=== PATIENT | female | born 1965 | race Caucasian/White ===

== ENCOUNTER 2017-08-26 09:49 | Emergency (ER) | payer MEDICARE, OTHER ==
[~2017-08-26] VITALS: Ht 162.6 cm; Wt 61.2 kg
--- NOTE | 2017-08-26 09:55 | NUR ---
PT IS IN ROOM #1B, WAITING FOR COLMENARES EVALUATION.
[2017-08-26] MEDS ORDERED: MORPHINE SULFATE 2 MG/1 ML DISP.SYRIN IV ONE (10:45)
[2017-08-26] MEDS ORDERED: KETOROLAC TROMETHAMINE 30 MG INJ IVP ONE (10:45)
[2017-08-26] MEDS ORDERED: diphenhydrAMINE 50 MG/1 ML VIAL IV ONE (10:45)
[2017-08-26] MEDS ORDERED: IV NS 1000 ML 1,000 ML IV ONE (10:45)
[2017-08-26] MEDS ORDERED: DEXAMETHASONE SOD PHOSPHATE 4 MG INJ IV ONE (10:45)
[2017-08-26] MEDS ORDERED: diphenhydrAMINE 50 MG/1 ML VIAL ONE (11:00)
[2017-08-26] MEDS ORDERED: ONDANSETRON IV *ER 4 MG/2 ML VIAL IV ONE ×2 (11:00→14:30)
[2017-08-26] MEDS ORDERED: MORPHINE SULFATE 2 MG/1 ML DISP.SYRIN ONE (11:00)
[2017-08-26] MEDS ORDERED: DEXAMETHASONE SOD PHOSPHATE 10 MG INJ ONE (11:00)
[2017-08-26] MEDS ORDERED: KETOROLAC TROMETHAMINE 30 MG INJ ONE (11:01)
[2017-08-26] MEDS ORDERED: ONDANSETRON 4 MG/2 ML VIAL ONE ×2 (11:01→14:29)
[2017-08-26 11:25] LABS: BILIRUBIN,TOTAL 0.2 mg/dL (0.1-1.0); CREATININE 0.9 mg/dL (0.6-1.3); POTASSIUM 3.9 mmol/L (3.5-5.1)
[2017-08-26 11:26] LABS: TOTAL PROTEIN, SERUM 7.8 g/dL (6.4-8.2)
[2017-08-26 11:28] LABS: BASOPHILS % (AUTO) 0.6 % (0.0-2.0); EOSINOPHILS # (AUTO) 0.1 K/uL (0.0-0.7); EOSINOPHILS % (AUTO) 1.7 % (0.0-7.0); HEMATOCRIT 42.1 % (31.2-41.9); HEMOGLOBIN 14.2 g/dL (10.9-14.3); LYMPHOCYTES # (AUTO) 1.1 K/uL (20.0-40.0); LYMPHOCYTES % (AUTO) 25.2 % (20.5-51.5); MEAN CORPUSCULAR HEMOGLOBIN 29.3 uug (24.7-32.8); MEAN CORPUSCULAR HGB CONC 34 g/dL (32.3-35.6); MEAN CORPUSCULAR VOLUME 86.5 fL (75.5-95.3); MONOCYTES # (AUTO) 0.4 K/uL (2.0-10.0); MONOCYTES % (AUTO) 8.3 % (0.0-11.0); NEUTROPHILS # (AUTO) 2.9 K/uL (1.8-8.9); NEUTROPHILS % (AUTO) 64.2 % (38.5-71.5); PLATELET COUNT (AUTO) 180 K/uL (179-408); RED BLOOD CELL COUNT(AUTO) 4.86 MIL/uL (3.63-4.92); WHITE BLOOD COUNT (AUTO) 4.5 K/uL (3.8-11.8)
[2017-08-26] MEDS ORDERED: HYDROMORPHONE 1 MG/1 ML DISP.SYRIN IV ONE ×2 (11:48→14:19)
[2017-08-26 11:53] LABS: *BILIRUBIN,URIN NEGATIVE (NEGATIVE); *BLOOD, URINE NEGATIVE (NEGATIVE); *CLARITY,URINE CLEAR (CLEAR); *COLOR,URINE YELLOW (YELLOW); *KETONES,URINE NEGATIVE (NEGATIVE); *PROTEIN,URINE NEGATIVE (NEGATIVE); *UROBILINOGEN,URINE 0.2 E.U./dl (NORMAL); LEUKOCYTE ESTERASE ,URINE NEGATIVE (NEGATIVE); NITRITE, URINE NEGATIVE (NEGATIVE); PH,URINE 6.5 (5.0-8.0); UGLUCOSE NEGATIVE (NEGATIVE)
[2017-08-26] MEDS ORDERED: HYDROMORPHONE 2 MG/1 ML DISP.SYRIN ONE ×2 (11:56→14:29)
[2017-08-26 12:00] LABS: BACTERIA,URINE NONE SEEN /HPF (NONE SEEN); MUCUS,URINE FEW /LPF (0-FEW); RBC,URINE 0-3 /HPF (0-3); SQUAMOUS EPITHELIAL CELL,UR FEW /HPF (NONE SEEN); WBC,URINE 0-3 /HPF (0-3)
[2017-08-26] MEDS ORDERED: IV NORMAL SALINE 500 ML IV ONE (14:30)
--- NOTE | 2017-08-26 14:59 | NUR ---
PT WAS D/C TO HOME. D/C INSTRUCTIONS GIVEN TO THE PT. DR MAJANO GAVE D/C INSTRUCTIONS TO THE PT.
[2017-08-26 15:01] VITALS: BP 132/76
== END 2017-08-26 15:15 | disposition home or self-care (01) ==
LOC: ER 09:51
DX: G97.1 Other reaction to spinal and lumbar puncture (principal); E03.9 Hypothyroidism, unspecified; Z91.048 Other nonmedicinal substance allergy status
CPT/HCPCS: 36415; 80053; 81001; 85025; 96361 ×2; 96374; 96375; 96376; 99284; A4663; J1100; J1170 ×2; J1200; J1885; J2270; J2405 ×2